=== PATIENT | male | born 1960 | race Caucasian/White ===

== ENCOUNTER 2017-12-24 15:47 | Inpatient (IN) | payer OTHER ==
[~2017-12-24] VITALS: Ht 167.6 cm; Wt 61.2 kg
[2018-01-20] MEDS ORDERED: VENTOLIN HFA18 GM IH (11:54)
[2018-01-20] MEDS ORDERED: ADVAIR HFA 230/12 GM IH (11:55)
[2018-01-20] MEDS ORDERED: ZANTAC300 MG PO (11:55)
[2018-01-20] MEDS ORDERED: LOSARTAN POTASS50 MG PO (11:55)
[2018-01-20] MEDS ORDERED: PRILOSEC OTC20 MG PO (11:55)
[2018-01-26] MEDS ORDERED: RECTICARE30 GM TOP (07:57)
[2018-01-26] MEDS ORDERED: TRAM1TAB98 PO (07:57)
== END 2018-01-26 11:46 | disposition home or self-care (01) | DRG 395 ==
LOC: O/R 01-24 05:46 → SURH 01-24 05:46
PROVIDERS: Surgery
PROC: 3E0T3BZ Introduction of Anesthetic Agent into Peripheral Nerves and Plexi, Percutaneous Approach (ICD-10-PCS; 2018-01-24)
PROC: 0DBP8ZZ Excision of Rectum, Via Natural or Artificial Opening Endoscopic (ICD-10-PCS; principal; 2018-01-24 10:30)
DX: D12.8 Benign neoplasm of rectum (principal); T39.1X5A Adverse effect of 4-Aminophenol derivatives, initial encounter; L29.8 Other pruritus